=== PATIENT | male | born 1995 | race Caucasian/White ===

== ENCOUNTER 2022-09-20 07:01 | Emergency (ER) | payer BC, OTHER ==
[2022-09-20 07:27] VITALS: PULSE 68
[2022-09-20] MEDS ORDERED: TORAdol 30 mg Injection IM ONE (07:34)
[2022-09-20] MEDS ORDERED: TORAdol 30 mg Injection ONE (07:38)
[2022-09-20 08:03] LABS: Absolute Neutrophil Ct (ANC) 4.01 x10^3/uL (1.4-6.9); BASOPHIL % 0.3 % (0.0-0.4); Basophil (Absolute #) 0.02 x10^3/uL (0-0.4); Eosinophil % 1.8 % (0.00-5.0); Eosinophil (Absolute #) 0.12 x10^3/uL (0-0.5); Hematocrit 44.1 % (42-50); Hemoglobin 14.6 g/dL (12.5-18.0); IMMATURE GRAN # 0.02 x10^3u/L (0.00-0.03); IMMATURE GRAN % 0.3 % (0.00-0.4); Lymphocytes % 27.5 % (24.0-44.0); Mean Corpuscular Hemoglobin 28.8 pg (26-32); Mean Corpuscular Hgb Concent. 33.1 g/dL (32-36); Mean Platelet Volume 8.8 fL (7.5-11.0); Monocyte (Absolute #) 0.57 x10^3/uL (0.0-1.3); Monocytes % 8.7 % (0.0-12.0); Neutrophil % 61.4 % (36.0-66.0); Platelet Count 194 x10^3/uL (150-450); Red Blood Count 5.07 x10^6/uL (4.1-5.6); White Blood Count 6.5 x10^3/uL (4.0-10.5)
[2022-09-20 08:27] VITALS: BP 125/72; O2SAT 99
--- NOTE | 2022-09-20 08:34 | ERPHSYRPT ---
- History of Present Illness Time Seen by Provider: 09/20/22 07:14 Historian: patient Exam Limitations: no limitations Patient Subjective Stated Complaint: C/O right sided abdominal pain that started around 3am today. Denies N/V or diarrhea. Triage Nursing Assessment: Patient ambulated back to ER without difficulties. No SOB. He is alert and oriented. Abdomen is soft, non-distended. Hypoactive bowel sounds present. Physician History: 27-year-old male presented in the ER with chief complaint of sudden onset periumbilical and right-sided abdominal pain waking up from sleep, moderate intensity without any significant aggravating or relieving factors. Denies associated nausea vomiting diarrhea or urinary complaints. No fever or chills reported. Timing/Duration: today Activities at Onset: sleep Quality: sharpness Abdominal Pain Onset Location: RLQ, periumbilical, flank Severity of Pain-Max: moderate Severity of Pain-Current: moderate Modifying Factors: Improves With: nothing Associated Symptoms: denies symptoms Previous symptoms: no prior history Allergies/Adverse Reactions: No Known Drug Allergies Allergy (Verified 09/20/22 07:27) Hx Tetanus, Diphtheria Vaccination/Date Given: Yes Hx Influenza Vaccination/Date Given: No Hx Pneumococcal Vaccination/Date Given: No Immunizations Up to Date: Yes Travel Risk - International Travel Have you traveled outside of the country in past 3 weeks: No - Coronavirus Screening Are you exhibiting any of the following symptoms?: No Close contact with a COVID-19 positive Pt in past 14-21 Days: No - Vaccine Status Have you recieved a Covid-19 vaccination: No - Review of Systems Constitutional: No Symptoms Eyes: No Symptoms Ears, Nose, & Throat: No Symptoms Respiratory: No Symptoms Cardiac: No Symptoms Abdominal/Gastrointestinal: Abdominal Pain Genitourinary Symptoms: No Symptoms Musculoskeletal: No Symptoms Neurological: No Symptoms Endocrine: No Symptoms Hematologic/Lymphatic: No Symptoms - Past Medical History Pertinent Past Medical History: Yes Musculoskeletal History: Degenerative Disk Disease Other Medical History: hx of boils on legs - Past Surgical History Past Surgical History: No Other Surgical History: Dietrich Teeth - Social History Smoking Status: Never smoker Exposure to second hand smoke: No Drug Use: marijuana Patient Lives Alone: No - Nursing Vital Signs Nursing Vital Signs: Initial Vital Signs Temperature 98.4 F 09/20/22 07:11 Pulse Rate 68 09/20/22 07:11 Respiratory Rate 18 09/20/22 07:11 Blood Pressure 129/70 09/20/22 07:11 O2 Sat by Pulse Oximetry 98 09/20/22 07:11 Pain Scale Pain Intensity 4 - Physical Exam General Appearance: no apparent distress, alert Eye Exam: PERRL/EOMI Ears, Nose, Throat Exam: normal ENT inspection Neck Exam: normal inspection, non-tender Respiratory Exam: normal breath sounds, lungs clear Cardiovascular Exam: regular rate/rhythm, normal heart sounds Gastrointestinal/Abdomen Exam: soft, normal bowel sounds, tenderness (Periumbilical area) Extremity Exam: normal inspection, normal range of motion Neurologic Exam: alert, oriented x 3, cooperative Skin Exam: normal color SpO2 Interpretation: normal SpO2: 99 O2 Delivery: Room Air Ordered Tests: Active Orders 24 hr Category Date Time Status ABDOMEN AND PELVIS W/0 CONTRAS [CT] Stat Exams 09/20/22 07:35 Completed CBC W DIFF Stat Lab 09/20/22 07:55 Completed CMP Stat Lab 09/20/22 07:55 Completed LIPASE Stat Lab 09/20/22 07:55 Completed Medication Summary Discontinued Medications Generic Name Dose Route Start Last Admin Trade Name [place]q PRN Reason Stop Dose Admin Ketorolac Tromethamine 30 mg 09/20/22 07:34 09/20/22 07:52 Ketorolac Tromethamine 30 Mg/Ml Inj IM 09/20/22 07:35 Not Given STAT ONE Ketorolac Tromethamine Confirm 09/20/22 07:38 Ketorolac Tromethamine 30 Mg/Ml Inj Administered 09/20/22 07:39 Dose 30 mg .ROUTE .STK-MED ONE Lab/Rad Data: Laboratory Result Diagrams 09/20/22 07:55 09/20/22 07:55 Laboratory Results 09/20/22 09/20/22 Range/Units 07:55 07:55 WBC 6.5 (4.0-10.5) x10^3/uL RBC 5.07 (4.1-5.6) x10^6/uL Hgb 14.6 (12.5-18.0) g/dL Hct 44.1 (42-50) % MCV 87.0 (78-100) fL MCH 28.8 (26-32) pg MCHC 33.1 (32-36) g/dL RDW 12.0 (11.5-14.0) % Plt Count 194 (150-450) x10^3/uL MPV 8.8 (7.5-11.0) fL Gran % 61.4 (36.0-66.0) % Immature Gran % (Auto) 0.3 (0.00-0.4) % Nucleat RBC Rel Count 0.0 (0.00-0.1) % Eos # (Auto) 0.12 (0-0.5) x10^3/uL Immature Gran # (Auto) 0.02 (0.00-0.03) x10^3u/L Absolute Lymphs (auto) 1.80 (1.0-4.6) x10^3/uL Absolute Monos (auto) 0.57 (0.0-1.3) x10^3/uL Absolute Nucleated RBC 0.00 (0.00-0.01) x10^3u/L Lymphocytes % 27.5 (24.0-44.0) % Monocytes % 8.7 (0.0-12.0) % Eosinophils % 1.8 (0.00-5.0) % Basophils % 0.3 (0.0-0.4) % Absolute Granulocytes 4.01 (1.4-6.9) x10^3/uL Basophils # 0.02 (0-0.4) x10^3/uL Sodium 141 (137-145) mmol/L Potassium 3.8 (3.5-5.1) mmol/L Chloride 106 (98-107) mmol/L Carbon Dioxide 25 (22-30) mmol/L Anion Gap 13.4 (5-15) MEQ/L BUN 14 (9-20) mg/dL Creatinine 0.92 (0.66-1.25) mg/dL Estimated GFR > 60.0 ML/MIN Glucose 98 (74-106) mg/dL Calcium 8.9 (8.4-10.2) mg/dL Total Bilirubin 0.60 (0.2-1.3) mg/dL AST 26 (17-59) U/L ALT 19 (0-50) U/L Alkaline Phosphatase 60 (38-126) U/L Serum Total Protein 7.4 (6.3-8.2) g/dL Albumin 4.4 (3.5-5.0) g/dL Lipase 63 (23-300) U/L - Progress Progress: improved Progress Note: 09/20/22 08:39 27-year-old is evaluated for periumbilical and right-sided abdominal pain. Has minimal tenderness in the periumbilical area, given Toradol for symptomatic rel ief, reevaluation feeling much better. Has normal white count, unremarkable chemistries, no UTI. CT abdomen pelvis negative for any acute intra-abdominal pelvic findings. Discussed with patient about early acute appendicitis and need to return which he seems understanding. Stable for discharge. Counseled pt/family regarding: lab results, diagnosis, need for follow-up Medical Desision Making - Discussion of managment Reviewed:: Test results Agreed on:: Treatment plan, need for follow-up - Diagnostic Testing Diagnostic test were ordered, analyzed, and reviewed by me: Yes Radiological Interpretation: Reviewed by me - Risk of complications The pt has a mod risk of morbidity or mortality based on: Need for prescription drug management - Departure Departure Disposition: Home Clinical Impression: Right sided abdominal pain Condition: Stable Critical Care Time: No Referrals: MAGDI STAUFFER [Primary Care Provider] - Follow up with PCP 1 day Instructions: High Fiber Diet, Severe Abdominal Pain, Constipation, Adult ED Additional Instructions: Take Tylenol/ibuprofen as needed. Follow-up with primary care for reevaluation. Return to ER for any worsening of pain or if having nausea vomiting/fever chills etc. take daily MiraLAX, increased fiber in diet. Prescriptions: Ibuprofen 600 mg PO Q6HPRN PRN 10 Days #20 tablet PRN Reason: Pain
[2022-09-20 08:35] LABS: ALBUMIN 4.4 g/dL (3.5-5.0); ALKALINE PHOSPHATASE 60 U/L (38-126); ANION GAP 13.4 MEQ/L (5-15); BLOOD UREA NITROGEN 14 mg/dL (9-20); CHLORIDE 106 mmol/L (98-107); Calcium 8.9 mg/dL (8.4-10.2); Carbon Dioxide 25 mmol/L (22-30); Creatinine 1 0.92 mg/dL (0.66-1.25); EST GLOMERULAR FILTRATION RATE > 60.0 ML/MIN; Glucose 98 mg/dL (74-106); LIPASE 63 U/L (23-300); Potassium 3.8 mmol/L (3.5-5.1); SGOT/AST 26 U/L (17-59); SGPT/ALT 19 U/L (0-50); SODIUM 141 mmol/L (137-145); Total Protein 7.4 g/dL (6.3-8.2)
--- NOTE | 2022-09-20 08:41 | XRAY ---
Indication: Right lower quadrant pain. Multiple contiguous axial images obtained through the abdomen and pelvis without contrast using renal stone protocol. Comparison: None Lung bases clear. Heart not enlarged. No renal calculus or evidence for obstructive uropathy in either system. Noncontrasted stomach and bowel loops appear nonobstructed with normal-appearing appendix. Mild diffuse scattered colonic fecal debris throughout. No free fluid/air. Remaining liver, gallbladder, pancreas, spleen, adrenal glands, kidneys, ureters, bladder, and aorta are unremarkable for noncontrast exam. Osseous structures intact with tiny multilevel thoracolumbar Schmorl nodes. No ventral or inguinal hernias. Impression: 1. Negative renal calculus or evidence for obstructive uropathy. 2. Mild diffuse fecal stasis. 3. Remaining CT abdomen/pelvis without contrast exam is negative.
== END 2022-09-20 09:01 | disposition home or self-care (01) ==
LOC: ED 07:01
DX: R10.31 Right lower quadrant pain (principal); Z20.828 Contact with and (suspected) exposure to other viral communicable diseases
CPT/HCPCS: 36415; 74176; 80053; 83690; 85025; 99283; J1885